=== PATIENT | female | born 1995 | race Caucasian/White ===

== ENCOUNTER 2018-09-29 21:40 | Emergency (ER) | payer OTHER ==
[2018-09-29 21:43] VITALS: BP 129/77
--- NOTE | 2018-09-29 21:55 | ER Report ---
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 She excellently cut herself with the lid on the palmar surface of her thumb. There is approximately 2 cm laceration that extends deep into the pad. Patient states her tetanus status is up-to-date. Allergies: Coded Allergies: No Known Drug Allergies (Unverified , 09/29/18) Home Meds No Active Prescriptions or Reported Meds Reviewed Nurses Notes: Yes Old Medical Records Reviewed: Yes Constitutional Vital Sign - Last 24 Hours 09/29/18 21:43 Temp 98.6 Pulse 90 Resp 12 B/P (MAP) 129/77 Pulse Ox 97 O2 Delivery Room Air Physical Exam General appearance: Alert no distress. Respiratory: Chest is non tender, lungs are clear to auscultation. Cardiac: Regular rate and rhythm Extremities: Examination of the right hand reveals a curvilinear thumb laceration on the palmar surface that extends from the distal crease on the radial side partially around through the pad near the distal tip. All tendons and ligaments appear intact. DIFFERENTIAL DIAGNOSIS: After history and physical exam differential diagnosis was considered for thumb laceration, joint penetration, tendon laceration, digital nerve laceration Medical Decision Making ED Course/Re-evaluation ED Course Patient was admitted to an examination room. H&P was done. The differential diagnoses was considered. On clinical examination. Patient has a laceration of her right thumb from a can lid. Patient's tetanus status is up-to-date. Patient's wound is infiltrated with Marcaine with epinephrine. Wound is cleansed. The wound is repaired as noted below. Procedure: Laceration repair. Verbal consent was obtained from the patient. The 2.6 cm laceration on the right thumb, palmar surface was anesthetized in the usual fashion. The wound was scrubbed, draped and explored to its base with a gloved finger. There were no deep structures involved. No tendon injury was identified. The wound was repaired with 5-0 Prolene 6 sutures. The wound repair was simple. The procedure was performed by myself. Wound care was discussed, suture removal will be in 10 days. Decision to Disposition Date: Sep 29, 2018 Decision to Disposition Time: 21:52 Depart Departure Latest Vital Signs Vital Signs Date Time Temp Pulse Resp B/P (MAP) Pulse Ox O2 Delivery O2 Flow Rate FiO2 09/29/18 21:43 98.6 90 12 129/77 97 Room Air Impression: Primary Impression: Thumb laceration Condition: Improved Disposition: HOME OR SELF-CARE New Scripts No Active Prescriptions or Reported Meds Patient Instructions: Finger Laceration (ED) Additional Instructions: Have your stitches removed in 10 days Perform daily wound care Problem Qualifiers Primary Impression: Thumb laceration Encounter type: initial encounter Damage to nail status: without damage Foreign body presence: without foreign body Laterality: right Qualified Codes: S61.011A - Laceration without foreign body of right thumb without damage to nail, initial encounter NICANOR BRIGGS DO Sep 29, 2018 21:55
== END 2018-09-29 22:22 | disposition home or self-care (01) ==
LOC: ER 22:00
DX: S61.011A Laceration without foreign body of right thumb without damage to nail, initial encounter (principal); W26.8XXA Contact with other sharp object(s), not elsewhere classified, initial encounter
CPT/HCPCS: 99283